=== PATIENT | male | born 1970 | race American Indian/Alaskan Native ===

== ENCOUNTER 2016-12-29 16:01 | Emergency (ER) | payer MEDICAID ==
--- NOTE | 2016-12-29 18:31 | Emergency Department Report ---
HPI - General Chief Complaint: Altered Mental Status Time Seen by Provider: 12/29/16 18:22 - HPI HPI: 46-year-old -[place] male comes in for complaint unknown. He was reportedly the patient was released from [facility] prison today in the prison called due to the patient refused to talk to the staff and nurse at the prison. The patient states he has nowhere to go initially the patient would not answer any questions by the triage nurse. Triage nurse reports that she told him she is aware that he can answer questions and talk. Patient is homeless prison reports possible altered mental status. Patient denies any pain ED Past Medical Hx - Past Medical History Previous Medical History?: Yes Hx Hypertension: Yes - Surgical History Past Surgical History?: Yes Additional Surgical History: Left ankle - Social History Smoking Status: Current Every Day Smoker Substance Use Type: Alcohol - Medications Home Medications: Home Medications Medication Instructions Recorded Confirmed Last Taken Type Unobtainable 12/29/16 12/29/16 Unknown History ED Review of Systems ROS: Stated complaint: PATIENT STATES HE HAS NOWHERE TO GO Other details as noted in HPI Physical Exam - Physical Exam Vital Signs: Vital Signs 12/29/16 16:12 Temperature 98.2 F Pulse Rate 97 H Respiratory 18 Rate Blood Pressure 144/102 O2 Sat by Pulse 99 Oximetry ED Course Vital Signs 12/29/16 16:12 Temperature 98.2 F Pulse Rate 97 H Respiratory 18 Rate Blood Pressure 144/102 O2 Sat by Pulse 99 Oximetry ED Medical Decision Making - Lab Data Result diagrams: 12/29/16 18:59 12/29/16 18:59 - Radiology Data Radiology results: report reviewed, image reviewed FINAL REPORT PROCEDURE: CT HEAD/BRAIN WO CON TECHNIQUE: Computerized tomography of the head was performed without contrast material. HISTORY: ams COMPARISON: No prior studies are available for comparison. FINDINGS: The visualized portions of the paranasal sinuses are clear. Mastoid air cells are clear. There is no calvarial fracture. There is no hydrocephalus. No acute intracranial hemorrhage or mass effect is seen. There is an exostosis is seen in the left sylvian fissure without mass effect. A similar exostosis is seen anteriorly in the right middle cranial fossa without mass effect. There is no evidence of acute CVA. IMPRESSION: No acute abnormalities are seen. Transcribed By: ANSON Dictated By: INNA EDDY JR, MD Electronically Authenticated By: INNA EDDY JR, MD Signed Date/Time: 12/29/162002 - Medical Decision Making Patient's been evaluated by this provider in fast track. Physical examination is within normal limits. We did order a CAT scan which showed negativity of any abnormalities. Were waiting for blood work to be done. Patient refused to tell me why he is here. Gas with Dr. Pulliam this case. Critical care attestation.: If time is entered above; I have spent that time in minutes in the direct care of this critically ill patient, excluding procedure time. ED Disposition Clinical Impression: Altered mental state Qualifiers: Altered mental status type: unspecified Qualified Code(s): R41.82 - Altered mental status, unspecified Disposition: DISCHARGED TO HOME OR SELFCARE Is pt being admited?: No Does the pt Need Aspirin: No Condition: Stable Instructions: Altered Mental Status (ED) Additional Instructions: Please followed her primary care provider. Negative CAT scan labs are within normal limits EKG is within normal limits. Referrals: MIGUEL PETERSEN MD [Primary Care Provider] - 3-5 Days JUSTICE VASQUES MD [Staff Physician] - 3-5 Days
--- NOTE | 2016-12-29 19:05 | Cat Scan Report ---
FINAL REPORT PROCEDURE: CT HEAD/BRAIN WO CON TECHNIQUE: Computerized tomography of the head was performed without contrast material. HISTORY: ams COMPARISON: No prior studies are available for comparison. FINDINGS: The visualized portions of the paranasal sinuses are clear. Mastoid air cells are clear. There is no calvarial fracture. There is no hydrocephalus. No acute intracranial hemorrhage or mass effect is seen. There is an exostosis is seen in the left sylvian fissure without mass effect. A similar exostosis is seen anteriorly in the right middle cranial fossa without mass effect. There is no evidence of acute CVA. IMPRESSION: No acute abnormalities are seen.
[2016-12-29 19:17] LABS: Hematocrit 43.6 % (35.5-45.6); Mean Corpuscular HGB Conc 32 % (32-34); Mean Corpuscular Hemoglobin 27 pg (28-32); Mean Corpuscular Volume 83 fl (84-94); Platelet Count 208 K/mm3 (140-440); Red Blood Count 5.24 M/mm3 (3.65-5.03); Red Cell Distribution Width 15.8 % (13.2-15.2); White Blood Count 6.4 K/mm3 (4.5-11.0)
[2016-12-29 19:33] LABS: Anion Gap 20 mmol/L; Blood Urea Nitrogen 12 mg/dL (9-20); Calcium 9.1 mg/dL (8.4-10.2); Carbon Dioxide 25 mmol/L (22-30); Chloride 94.9 mmol/L (98-107); Glucose 103 mg/dL (75-100); Potassium 3.7 mmol/L (3.6-5.0); Sodium 136 mmol/L (137-145)
[2016-12-29 23:16] LABS: Bacteria,Urine 1+ /HPF (Negative); Bilirubin,Urine NEG (Negative); Blood,Urine NEG (Negative); Ketones,Urine 20 mg/dL (Negative); Leukocyte Esterase,Urine NEG (Negative); Mucus,Urine FEW /HPF; Nitrite,Urine NEG (Negative); Protein,Urine <15 mg/dL mg/dL (Negative); Urobilinogen,Urine < 2.0 mg/dL (<2.0); WBC,Urine < 1.0 /HPF (0.0-6.0)
[2016-12-30 00:06] VITALS: BP 136/90
== END 2016-12-30 00:11 | disposition home or self-care (01) ==
LOC: ED 16:01
DX: R41.82 Altered mental status, unspecified (principal); I10 Essential (primary) hypertension; F17.200 Nicotine dependence, unspecified, uncomplicated
CPT/HCPCS: 36415; 70450; 80048; 81001; 85027; 93005; 93010